=== PATIENT | female | born 1990 | race Caucasian/White ===

== ENCOUNTER 2018-01-01 15:26 | Emergency (ER) | payer BC, MEDICAID ==
[2018-01-01] MEDS ORDERED: methylPREDNISolone Sodium Succinate 125 MG/2 ML SDV IM ONE (16:19)
--- NOTE | 2018-01-01 16:35 | EDM.PDOC ---
ED HPI GENERAL MEDICAL PROBLEM - General Chief Complaint: ENT Problem Stated Complaint: SORE THROAT Time Seen by Provider: 01/01/18 16:32 Source of Information: Reports: Patient - History of Present Illness INITIAL COMMENTS - FREE TEXT/NARRATIVE: HISTORY AND PHYSICAL: History of present illness: []Patient presents as she is mouth content with [facility] as she was seen at 5:00 at the clinic she did receive a gram of Rocephin and some Augmentin that was provided to her as well as a paper prescription hence completed appropriate treatment however she has mild content as the visit seemed rushed she has some intermittent subjective fever and myalgias consistent with strep Currently no fever nausea vomiting chills sweats she still has sore throat no muffled voice drooling or trismus Review of systems: As per history of present illness and below otherwise all systems reviewed and negative. Past medical history: As per history of present illness and as reviewed below otherwise noncontributory. Surgical history: As per history of present illness and as reviewed below otherwise noncontributory. Social history: No reported history of drug or alcohol abuse. Family history: As per history of present illness and as reviewed below otherwise noncontributory. Physical exam: HEENT: Atraumatic, normocephalic, pupils reactive, negative for conjunctival pallor or scleral icterus, mucous membranes moist, throat clear, neck supple, nontender, trachea midline. Moderate erythema with exudate no evidence of abscess Lungs: Clear to auscultation, breath sounds equal bilaterally, chest nontender. Heart: S1S2, regular, negative for clicks, rubs, or JVD. Abdomen: Soft, nondistended, nontender. Negative for masses or hepatosplenomegaly. Negative for costovertebral tenderness. Pelvis: Stable nontender. Genitourinary: Deferred. Rectal: Deferred. Extremities: Atraumatic, negative for cords or calf pain. Neurovascular unremarkable. Neuro: Awake, alert, oriented. Cranial nerves II through XII unremarkable. Cerebellum unremarkable. Motor and sensory unremarkable throughout. Exam nonfocal. Diagnostics: [Clinical ] Therapeutics: [Patient received 1 g of Rocephin at [facility] as well as she has taken one Augmentin tablet daily and has a full prescription available to her [id number] symptomatic therapy is recommended Solu-Medrol 125 mg IM and prednisone 40 mg daily for 3 days ] Impression: [] pharyngitis, consistent with strep pharyngitis Definitive disposition and diagnosis as appropriate pending reevaluation and review of above. Throat Pain Score (Numeric/FACES): 10 - Related Data Allergies Allergy/AdvReac Type Severity Reaction Status Date / Time Sulfa (Sulfonamide Allergy Rash Verified 01/01/18 15:54 Antibiotics) Home Meds: Home Meds Amoxicillin/Clavulanate K [Augmentin 875-125 MG] 1 tab PO BID 01/01/18 [History] Past Medical History Psychiatric History: Reports: Depression, Mood Swings - Past Surgical History Female Surgical History: Reports: Section Social & Family History - Family History Family Medical History: Noncontributory - Tobacco Use Smoking Status *Q: Current Every Day Smoker Years of Tobacco use: 5 Packs/Tins Daily: 1 - Recreational Drug Use Recreational Drug Use: No ED ROS GENERAL - Review of Systems Review Of Systems: See Below ED EXAM, GENERAL - Physical Exam Exam: See Below Course - Vital Signs Last Recorded V/S: Last Vital Signs Temp 98.0 F 01/01/18 15:49 Pulse 98 01/01/18 15:49 Resp 18 01/01/18 15:49 BP 127/75 01/01/18 15:49 Pulse Ox 99 01/01/18 15:49 - Orders/Labs/Meds Meds: Medications Discontinued Medications Generic Name Dose Route Start Last Admin Trade Name Freq PRN Reason Stop Dose Admin Methylprednisolone Sodium Succinate 125 mg 01/01/18 16:19 Solu-Medrol IM 01/01/18 16:20 ONETIME ONE Departure - Departure Time of Disposition: 16:34 Disposition: Home, Self-Care 01 Condition: Good Clinical Impression: Pharyngitis, Tonsillitis - Discharge Information Referrals: PCP,None [Primary Care Provider] - Additional Instructions: The following information is given to patients seen in the emergency department who are being discharged to home. This information is to outline your options for follow-up care. We provide all patients seen in our emergency department with a follow-up referral. The need for follow-up, as well as the timing and circumstances, are variable depending upon the specifics of your emergency department visit. If you don't have a primary care physician on staff, we will provide you with a referral. We always advise you to contact your personal physician following an emergency department visit to inform them of the circumstance of the visit and for follow-up with them and/or the need for any referrals to a consulting specialist. The emergency department will also refer you to a specialist when appropriate. This referral assures that you have the opportunity for follow-up care with a specialist. All of these measure are taken in an effort to provide you with optimal care, which includes your follow-up. Under all circumstances we always encourage you to contact your private physician who remains a resource for coordinating your care. When calling for follow-up care, please make the office aware that this follow-up is from your recent emergency room visit. If for any reason you are refused follow-up, please contact the [facility] emergency department at and asked to speak to the emergency department charge nurse.
== END 2018-01-01 16:49 | disposition home or self-care (01) ==
LOC: MW.ED 15:26
DX: J02.9 Acute pharyngitis, unspecified (principal); J03.90 Acute tonsillitis, unspecified; F17.210 Nicotine dependence, cigarettes, uncomplicated; Z88.2 Allergy status to sulfonamides
CPT/HCPCS: 99283; J2930

== ENCOUNTER 2018-11-23 15:37 | Emergency (ER) | payer SELFPAY ==
--- NOTE | 2018-11-23 15:43 | EDM.PDOC ---
ED HPI GENERAL MEDICAL PROBLEM - General Chief Complaint: General Stated Complaint: BEELS PALSY Time Seen by Provider: 11/23/18 15:39 Source of Information: Reports: Patient History Limitations: Reports: No Limitations - History of Present Illness INITIAL COMMENTS - FREE TEXT/NARRATIVE: History of present illness: []Patient started having some nausea symptoms on the left side of her face either days ago. She went to [facility] and the upstairs maid told her that they would just send her to the ER so she came here instead. Patient states she has decreased taste on the left side of her mouth and is unable to close her eye fully on the left and tingling to her cheek. Patient has a recent cold. Patient denies any headache. Review of systems: As per history of present illness and below otherwise all systems reviewed and negative. Past medical history: As per history of present illness and as reviewed below otherwise noncontributory. Surgical history: As per history of present illness and as reviewed below otherwise noncontributory. Social history: No reported history of drug or alcohol abuse. Family history: As per history of present illness and as reviewed below otherwise noncontributory. Physical exam: General: Well developed, well nourished in NAD HEENT: Atraumatic, normocephalic, pupils reactive, negative for conjunctival pallor or scleral icterus, mucous membranes moist, throat clear, neck supple, nontender, trachea midline. Lungs: Clear to auscultation, breath sounds equal bilaterally, chest nontender. Heart: S1S2, regular, negative for clicks, rubs, or JVD. Abdomen: NABS, Soft, nondistended, nontender. Negative for masses or hepatosplenomegaly. Negative for costovertebral tenderness. Pelvis: Stable nontender. Genitourinary: Deferred. Rectal: Deferred. Extremities: Atraumatic, negative for cords or calf pain. Neurovascular unremarkable. Neuro: Awake, alert, oriented. Has no obvious facial droop however she does have lid lag on the left. Cerebellum unremarkable. Motor and sensory unremarkable throughout. Exam nonfocal. Skin:warm and dry Diagnostics: None Therapeutics: None ED Course: Stable Impression: Randle's palsy Prescriptions: acyclovir Plan: Take meds as directed, follow up with your primary care physician, return to ER if symptoms worsen or change. Definitive disposition and diagnosis as appropriate pending reevaluation and review of above. - Related Data Allergies Allergy/AdvReac Type Severity Reaction Status Date / Time Sulfa (Sulfonamide Allergy Rash Verified 01/01/18 15:54 Antibiotics) Home Meds: Home Meds Acyclovir [Zovirax] 800 mg PO 5XDAY #50 tab 11/23/18 [Rx] Multivitamin [Multi-Vitamin Daily] 1 tab PO DAILY 11/23/18 [History] [place]-3/DHA/Epa/Fish Oil [Fish Oil 1,000 mg Softgel] 1 g PO DAILY 11/23/18 [ History] Past Medical History Psychiatric History: Reports: Depression, Mood Swings - Past Surgical History Female Surgical History: Reports: Section Social & Family History - Family History Family Medical History: Noncontributory ED ROS GENERAL - Review of Systems Review Of Systems: ROS reveals no pertinent complaints other than HPI. ED EXAM, GENERAL - Physical Exam Exam: See Below (See history of present illness) Course - Vital Signs Last Recorded V/S: Last Vital Signs Temp 97.4 F 11/23/18 15:52 Pulse 100 11/23/18 15:52 Resp 18 11/23/18 15:52 BP 139/62 11/23/18 15:52 Pulse Ox 96 11/23/18 15:52 Departure - Departure Time of Disposition: 16:23 Disposition: Home, Self-Care 01 Condition: Good Clinical Impression: Randle's palsy - Discharge Information *PRESCRIPTION DRUG MONITORING PROGRAM REVIEWED*: No *COPY OF PRESCRIPTION DRUG MONITORING REPORT IN PATIENT KARLEY: No Prescriptions: Acyclovir [Zovirax] 800 mg PO 5XDAY #50 tab Referrals: PCP,Unknown [Primary Care Provider] - Forms: ED Department Discharge Additional Instructions: The following information is given to patients seen in the emergency department who are being discharged to home. This information is to outline your options for follow-up care. We provide all patients seen in our emergency department with a follow-up referral. The need for follow-up, as well as the timing and circumstances, are variable depending upon the specifics of your emergency department visit. If you don't have a primary care physician on staff, we will provide you with a referral. We always advise you to contact your personal physician following an emergency department visit to inform them of the circumstance of the visit and for follow-up with them and/or the need for any referrals to a consulting specialist. The emergency department will also refer you to a specialist when appropriate. This referral assures that you have the opportunity for follow-up care with a specialist. All of these measure are taken in an effort to provide you with optimal care, which includes your follow-up. Under all circumstances we always encourage you to contact your private physician who remains a resource for coordinating your care. When calling for follow-up care, please make the office aware that this follow-up is from your recent emergency room visit. If for any reason you are refused follow-up, please contact the [facility] Emergency Department at and asked to speak to the emergency department charge nurse. [facility] Primary Care [address] [place] [id number]
== END 2018-11-23 16:45 | disposition home or self-care (01) ==
LOC: MW.ED 15:37
DX: G51.0 Bell's palsy (principal); Z88.2 Allergy status to sulfonamides; Z79.899 Other long term (current) drug therapy
CPT/HCPCS: 99283

== ENCOUNTER 2021-09-04 04:20 | Inpatient (IN) | payer MEDICAID ==
[2021-09-04] MEDS ORDERED: Sodium Chloride 0.9% 20 ML SDV IV PRN (04:50)
[2021-09-04] MEDS ORDERED: Sodium Chloride 0.9% 10 ML Syringe FLUSH PRN (04:50)
[2021-09-04] MEDS ORDERED: Sodium Chloride 0.9% 2.5 ML Syringe FLUSH PRN (04:50)
[2021-09-04] MEDS ORDERED: Citric Acid/Sodium Citrate Solution 30 ML Cup PO ONE (04:50)
[2021-09-04] MEDS ORDERED: Oxytocin/0.9 % Sodium Chloride 30 UNIT/500 ML BAG IV SCH (05:00)
[2021-09-04] MEDS: Lactated Ringers 1,000 ML IV SCH ×2 (05:35→07:18)
[2021-09-04] MEDS ORDERED: Diphtheria,Pertussis(Acell),Tetanus Vaccine 0.5 ML Syringe IM ONE (05:54)
[2021-09-04] MEDS ORDERED: ceFAZolin 1 GM Vial ONE (06:53)
[2021-09-04] MEDS ORDERED: Ketorolac 30 MG/ML SDV ONE (06:54)
[2021-09-04] MEDS ORDERED: Ondansetron 4 MG/2 ML SDV ONE (06:54)
[2021-09-04] MEDS ORDERED: Oxytocin 10 Units/1 ML SDV ONE (06:54)
[2021-09-04] MEDS ORDERED: Phenylephrine 1% 10 MG/ML SDV ONE (06:55)
[2021-09-04] MEDS ORDERED: Water For Injection, Sterile 20 ML ONE (06:57)
[2021-09-04] MEDS ORDERED: Morphine PF 10 MG/10 ML SDV ONE (07:09)
[2021-09-04] MEDS ORDERED: ceFAZolin 2 GM in Premix Bag 1 BAG IV ONE (07:50)
[2021-09-04] MEDS: Ketorolac 30 MG/ML SDV IVPUSH SCH ×3 (09:00→21:43)
[2021-09-04] MEDS ORDERED: Lanolin 100% Cream 7 GM Tube TOP PRN (09:01)
[2021-09-04] MEDS ORDERED: Bisacodyl 10 MG Supp RECTAL PRN (09:01)
[2021-09-04] MEDS ORDERED: Ondansetron 4 MG/2 ML SDV IVPUSH PRN (09:01)
[2021-09-04] MEDS ORDERED: Acetaminophen/oxyCODONE 325-5 MG Tab PO PRN ×2 (09:01)
[2021-09-04] MEDS ORDERED: diphenhydrAMINE 50 MG/ML SDV IVPUSH PRN (09:01)
[2021-09-04] MEDS ORDERED: Cetirizine 10 MG Tab PO PRN (09:03)
[2021-09-04] MEDS ORDERED: Lactated Ringers 1,000 ML IV SCH (09:15)
[2021-09-04] MEDS: Docusate Sodium 100 MG Cap PO SCH (21:43)
[2021-09-05] MEDS: Ketorolac 30 MG/ML SDV IVPUSH SCH ×2 (03:46→09:59)
[2021-09-05] MEDS: Docusate Sodium 100 MG Cap PO SCH ×2 (10:04→20:53)
[2021-09-05] MEDS: Ibuprofen 800 MG Tab PO PRN (17:28)
[2021-09-06] MEDS: Ibuprofen 800 MG Tab PO PRN (04:43)
[2021-09-06] MEDS ORDERED: Cetirizine 10 MG Tab PO PRN (12:45)
== END 2021-09-06 11:45 | disposition home or self-care (01) | DRG 788 ==
LOC: INTOOBSV 04:20 → MW.OB 04:20 → OBSVTOIN 08:24 → MW.OB 13:33
PROVIDERS: ADMIT Obstetrics & Gynecology; ATTEND Obstetrics & Gynecology
PROC: 10D00Z1 Extraction of Products of Conception, Low, Open Approach (ICD-10-PCS; principal; 2021-09-04)
DX: O99.214 Obesity complicating childbirth (principal); E66.9 Obesity, unspecified; Z37.0 Single live birth; O34.211 Maternal care for low transverse scar from previous cesarean delivery; Z3A.39 39 weeks gestation of pregnancy; Z86.16 Personal history of COVID-19; O99.334 Smoking (tobacco) complicating childbirth; F17.210 Nicotine dependence, cigarettes, uncomplicated
CPT/HCPCS: 36415; 36430; 59025; 85014; 85018; 85027; 85460; 86592; 86850; 86900; 86901; A9270-GY; J0690; J1200; J1885; J2274; J2370; J2405; J2590; J2790; J7120